=== PATIENT | male | born 1935 | race Caucasian/White ===

== ENCOUNTER 2018-10-14 11:58 | Observation (INO) | payer MEDICARE, SELFPAY ==
[2018-09-29 10:53] VITALS: BMI 24.3
[2018-10-13] VITALS (16 sets, daily range): BP systolic 105–152; BP diastolic 58–95; PULSE 72–89; RESP 6–21; TEMP 36.1–37; O2SAT 92–100; BMI 24.3
[2018-10-13] MEDS: ACETAMINOPHEN 325 MG TABLET 975 MG PO ×2 (08:40→21:21)
[2018-10-13] MEDS: LACTATED RINGERS 1,000 ML 42 ML IV ×2 (08:58→12:11)
--- NOTE | 2018-10-13 10:00 | DI.RAD.S_ITS ---
PROCEDURE: XR KNEE LT 1TO2V INDICATIONS: post operative left knee TECHNIQUE: 2 view(s) of the knee acquired. COMPARISON: None. FINDINGS: Bones: Patient is status post knee joint arthroplasty. Hardware components are in expected positions. Visualized bony structures are intact. Soft tissues: Overlying postoperative changes are noted. IMPRESSION: Normal alignment after left total knee arthroplasty. Dictated by: Scottie Do M.D. on 10/13/2018 at 13:55 Approved by: Scottie Do M.D. on 10/13/2018 at 13:55
--- NOTE | 2018-10-13 10:22 | PM.PREOP ---
Pre-operative Note Interval Note History & Physical reviewed/Exam performed by Physician: Yes Changes to H&P: No
--- NOTE | 2018-10-13 10:42 | P.OP_ITS ---
Operative Date/Time/Diagnoses Date of procedure: 10/13/18 Time of procedure: 12:30 Pre-op diagnosis: Left knee osteoarthritis Post-op diagnosis: same Procedure & Clinicians Procedure: Left total knee replacement Same procedure as scheduled: Yes Indications: The patient has had progressively worsening left knee pain with radiographic changes consistent with arthritis. Non-operative management has failed and the patient has requested total knee replacement. The risks, benefits and alternatives to surgery were discussed with the patient prior to proceeding. Risks discussed included, but were not limited to, failure to relieve pain, stiffness, infection, nerve damage, deep venous thrombosis, pulmonary embolism, stroke, coma, heart attack, permanent paralysis and , as well as the potential need for eventual revision of the prosthetic. Surgeon: Del Clemente Elevator Mechanic: Mirela Felix Click Yes if Unassisted: No Anesthesia Type: General and Local Operative Notes Findings: Severe tricompartmental osteoarthritis worst on the medial side. There was significant crystal formation in the synovial tissue either from CPPD or from repetitive corticosteroid injections. Closure Type: primary Specimen(s): none sent Prosthetic devices, grafts, tissues, transplants, or devices: Implants used in this procedure were manufactured by the [employer] and [employer] and included the BCS II Journey total knee replacement with a size 6 cobalt chromium femur, a size 6 non porous tibial base plate, a 9 mm cross-linked polyethylene tibial insert and a 38 mm oval Iza II patellar component. Applied: implant(s) Estimated Blood Loss (mL): 50 Blood products transfused: none Tourniquet time (min): 54 Procedure in detail: The patient was seen in the pre-operative area, where the left knee was identified as the operative site and this was marked with my initials. The patient received pre-operative antibiotics, and was taken to the operating room and placed on the operative table in the supine position. After satisfactory anesthesia, a timekeeper out? was performed. The left leg was encircled with a tourniquet about the proximal thigh, and the leg was prepared from the toes to the tourniquet with ChloroPrep in the usual fashion and draped through sterile drapes. The leg was elevated and exsanguinated with Eschmark bandage and the tourniquet inflated to 250 mmHg pressure. The knee was approached through an approximately 18 cm incision centered over the patella and carried into the knee through a medial parapatellar arthrotomy. The anterior osteophytes and soft tissues were removed. The rotational landmarks of Branch's line and the transepicondylar axis were marked on the femur with electrocautery, and intramedullary guide holes for the femur and tibia were created. The distal femoral cut was made in 6 degrees of valgus using the intramedullary guide at the +2 cut setting due to the patient's flexion contra cture. The proximal tibial cut was then made using the intramedullary guide, taking 9 mm of bone off the less involved side. The extension gap was checked and the rotation of the femoral component confirmed with the gap balancing blocks. The anterior, posterior and chamfer cuts were then made. The posterior osteophytes and soft tissues were then removed. The posterior capsule was injected with part of a mixture of 60 ml 0.25% Marcaine mixed with 20 ml Exparel and 4 mg of morphine for post-operative pain control. The remainder of this mixture was injected into the capsule and subcutaneous tissues during cement curing. The tibia was prepared with the rotation set by an extra medullary guide. Trial tibial and femoral components were then placed and the intercondylar notch cut through the femoral trial. Range of motion was 0-140 degrees, with good stability throughout the range. The patella was then cut to accommodate the patellar prosthetic. There was no need for a lateral release. The trials were then removed, and the femoral hole plugged with a bone plug. The bone was prepared with pulsatile lavage, and dried with a sponge. Cement was applied and the final prosthetics placed. Excess cement was removed during and after cement curing. After confirming there was no extruded cement posteriorly, the final tibial insert was placed. The knee was copiously irrigated and the tourniquet deflated. Hemostasis was obtained. The capsule was closed with interrupted # 2 polyester sutures. The subcutaneous layer was closed with 3-0 Vicryl, and the skin with a running 3-0 V-Lock suture and SteriStrips. An Aquacel Ag dressing was applied and the patient was taken to recovery having tolerated the procedure well. Complications: none Condition: stable Disposition: PACU Plan for aftercare: The patient will be maintained on a standard total knee replacement protocol with weight bearing as tolerated. The patient will receive aspirin and sequential compression devices for DVT prophylaxis. The patient will be discharged home when safe for the home environment.
[2018-10-13] MEDS: CEFAZOLIN 2 GM/100 ML FROZ.PIGGY IV ×2 (11:07→20:10)
[2018-10-13] MEDS: TRANEXAMIC ACID 1,000 MG VIAL 1000 MG INJ ×2 (11:24→12:24)
--- NOTE | 2018-10-13 11:35 | SUR.OPER ---
Supine on padded OR bed. Pillow under head, arms secured on padded armboards <90 degree abduction. Safety belt across torso. Non-operative leg secured with tape over blanket over lower leg. Operative leg secured in DeMayo/Stuart positioner.
[2018-10-13] MEDS: BUPIVACAINE 0.25% W/ EPI VIAL 60 ML INJ (11:48)
[2018-10-13] MEDS: BUPIVACAINE LIPOSOME 266 MG/20 ML VIAL INJ (11:48)
[2018-10-13] MEDS: MORPHINE 4 MG/ML INJ INJ (11:49)
[2018-10-13] MEDS: HYDROMORPHONE 2 MG INJ 0.5 MG IV (13:53)
--- NOTE | 2018-10-13 13:59 | SUR.PHASEI ---
Report called to PHILIP Campos
--- NOTE | 2018-10-13 14:24 | SUR.PHASEI ---
Pt transferred to the floor. O2 sat 87%-90%ra, 2lnc applied. Otherwise vs stable. LT knee drsg CDI. IV saline locked. Pt oriented to situation but intermittently has incorrect responses to questions. Belongings bag x2 with patient.
--- NOTE | 2018-10-13 16:07 | PC.NURSE ---
Post-op: Late entry Arrived to room 208 at 1415. Drowsy but awakens easily to voice/touch. Was placed on 2L O2 (RA sats in the upper 80's), cont pulse ox in place. Russell wrap and dressing to L knee C/D/I. CMS+ WNL, feet warm and pink with strong pedal pulses. Rated pain in L knee 4/10. Ice pack in place. Vitals stable. Taking ice chips and water without N/V. IV fluids per order. No urge to void at this time. SCD's placed. Oriented to room and call light, encouraged to make needs known. Light in reach, bed alarm on.
[2018-10-13] MEDS: OXYCODONE IR 5 MG TABLET PO ×2 (17:06→21:38)
--- NOTE | 2018-10-13 17:28 | PT.IIE ---
Current Diagnoses Unilateral primary osteoarthritis, left knee (10/13/18) Surgery Performed Operation Date: 10/13/18 10:00 Actual Procedures p Total Knee Arthroplasty(Left) - Del Clemente MD Surgical History (Last Updated 09/29/18 @ 11:16 by Lavonne Burgos, RN) History of arthroplasty of right knee (Acute ~2018) Hx of appendectomy (Acute) Status post carotid surgery (Acute ~2013) Medical History (Last Updated 09/29/18 @ 12:26 by Lavonne Burgos RN) Bladder diverticulum (Acute) Detached retina, left (Acute) Elevated cholesterol (Acute) Enlarged prostate (Acute) HTN (hypertension) (Acute) Hematuria (Acute) Tremor (Acute) Physical Therapy Inpatient Evaluation/Re-Eval M1 PT/OT-IP Prior Functional Status Start: 10/13/18 16:54 Freq: NEEDED Status: Active Protocol: Document 10/13/18 16:30 HH (Rec: 10/13/18 17:28 [id number]) Medical Review Prior Functional Status Medical History Reviewed Yes Diet/Fluid Consistency Regular Communication No communication deficits noted except slow speech Mobility and Gait Pt was an independent ambulator at home and community without using AD. Activities of Daily Living and IADL's Pt was independent for ADLs and IADLs without using AD. Social History Household Members none Living Arrangements House Number of Floors (Floors) One Floor Number of Stairs To Enter/Railing? 2, no railing Home Environment Tub/Shower Home Equipment Front Wheel Walker Straight Cane Grab Bars In Shower Employment Status Retired Additional Social History Comment Pt lives a lone in a 1 story home with 2 SARA in [facility]. Pt states he does not need any assistive device for mobility and able to step over the bathtub. Pt does need to hold on counter for support from time to time for sit to stand. Pt states he has difficulty getting up from low chair. M2 PT-IP Current Condition Start: 10/13/18 16:54 Freq: NEEDED Status: Active Protocol: Document 10/13/18 16:30 HH (Rec: 10/13/18 17:28 [id number]) Physical Therapy Current Condition Current Condition Evaluation Date 10/13/18 Treatment Diagnosis L TKA, difficulty in walking Onset Date 10/13/18 Weight Bearing Status Weight Bearing Status Weight Bear as Tolerated M3 PT-IP Subjective Start: 10/13/18 16:54 Freq: NEEDED Status: Active Protocol: Document 10/13/18 16:30 HH (Rec: 10/13/18 17:28 HH [id number]) Subjective Physical Therapy Visit Type Type Initial Evaluation Visit Start Time 16:30 Visit Stop Time 17:00 Total Visit Minutes 30 Notes Pt agreeable to mobilize with PT Number of ULTRASONIC CLEANER Visits 0 Physical Therapy Visit Comments Patient Comments I want to try walking. Patient Goals To return home Therapy Pain Assessment Pain Present Pain Present Denied Pain M4 PT-IP Mobility and Gait Start: 10/13/18 16:54 Freq: NEEDED Status: Active Protocol: Document 10/13/18 16:30 HH (Rec: 10/13/18 17:28 HH [id number]) PT-Bed Mobility Assessment Supine to Sit Supine to Sit Standby Assistance Head of Bed Elevated Bedrails Scooting Scooting to Edge of Bed Standby Assistance PT-Transfer Assessment Sit to and From Stand Sit to and from Stand Standby Assistance 1 Person Assistance Use of Upper Extremities Equipment Transfer Assistive Device Bed Rail Gait Belt Front Wheeled Walker Transfers Transfer Destination Bed Chair Transfer Technique Stand Step Pivot Transfer Ability Level of Assist Standby Assistance Comments Mobility Comments Pt states Im very cautious and i know my capability. So you could help me if i asked for it. Pt got up EOB from supine followed by STS with SBA x 1 and FWW. Pt presented lack of L TKE upon standing but he was able to flex his knee close to 95 degrees. Pt required cues to facilitate upright posture along with L knee extension. Gait Assessment Gait Gait Assistance Required: Contact Guard Assist Distance (Feet) 15 Able to Maintain Weight Bearing Status Yes During Gait Assistive Devices Assistive Device Gait Belt Front Wheeled Walker Gait Deviations General Gait Pattern Antalgic Decreased Stride Length Decreased Feet Clearance Step-to Gait Factors Limiting Gait Function Factors Limiting Gait Function Decreased Activity Tolerance Decreased Strength Limited Range of Motion Pain Poor Balance Poor Safety Awareness Comments Gait Comments Pt was impulsive during session who needed cues for guidance. Pt amb from EOB on the right side and amb around his bed and returned to bedside chair with CGA 1pa. Pt presented step to gait pattern with decreased stride length and feet clearance. Pt also demonstrated lack of L TKE and heel strike. Pt required cues for upright posture and TKE. Pt also needed cues to position his FWW close to his body upon turns and stand to sit. Pt requested to placed 2 pillows on his chair for better sit to stand. Call light within reach. Pt was found attempting to stand up by himself when PT was updating pt's status with RN in the hallway. Requested nursing staff to place chair alarm due to his impulsiveness . Stair Climbing Assessment Comments Stair Climbing Comments unable PT-Balance Assessment Sitting Balance and Reactions Static Sitting Balance Ability Normal Dynamic Sitting Balance Ability Normal Standing Balance and Reactions Static Standing Balance Ability Good Dynamic Standing Balance Ability Fair M5 PT-IP Objective Assessments Start: 10/13/18 16:54 Freq: NEEDED Status: Active Protocol: Document 10/13/18 16:30 HH (Rec: 10/13/18 17:28 [id number]) Orientation Orientation/Cognition Level of Alertness Alert Orientation Name Age Birthday Month Date Year Day of Week Place Situation Language Function Ability No Deficits Noted Safety Awareness Decreased Safety Awareness Memory Description No Deficits Noted Gross Range of Motion Upper Extremity ROM Assessment Within Functional Limits Lower Extremity ROM Assessment Left Impaired Impairments 10- 95 AROM knee ext to knee flex Strength Upper Extremity Strength Assessment Within Functional Limits Lower Extremity Strength Assessment Left Impaired Coordination Assessment Gross Coordination Gross Coordination WNL Sensation Assessment Sensation Gross Sensation Left LE Impaired Light Touch Impaired Proprioception (Position) Impaired M6 PT-IP Treatment Start: 10/13/18 16:54 Freq: NEEDED Status: Active Protocol: Document 10/13/18 16:30 HH (Rec: 10/13/18 17:28 [id number]) Physical Therapy Treatment Exercises Exercises Ankle Pumps Quad Sets Heel Slides Straight Leg Raises Short Arc Quads Education Education Provided Precautions Weight Bearing Status Post-Op Packet Safety M7 PT-IP Assessment and Plan Start: 10/13/18 16:54 Freq: NEEDED Status: Active Protocol: Document 10/13/18 16:30 HH (Rec: 10/13/18 17:28 [id number]) PT Summary Assessment and Plan Potential Rehabilitation Potential Good Status of Condition at Evaluation Evolving Summary Impairments Pain ROM Strength Balance Sensation Bed Mobility Transfers Gait Activity Tolerance Assessment Summary Pt is a 83 yo male post op day 1 L TKA due to severe L knee OA. Pt presented slightly impulsive and required cues for guidance upon assessment. Pt demonstrated step to gait and lack of L TKE. Education on post op precautions, therex , and safety awareness are provided. Pt also did have a high PLOF without using AD. However, Pt will have to clear steps prior to d/c home. Recommend d/c home with outpatient PT to cont improve his functional strength and mobility once pt is medically stable. Goals Bed Mobility Goal Independent Transfer Goal Independent Gait Goal Independent Gait Distance 150 Other Goals stair climb 2 steps without support Days to Meet Goals 5 Frequency of Treatment Frequency Of Treatment Twice a Day Treatment Plan Physical Therapy Treatment Plan Bed Mobility Training Transfer Training Gait Training Therapeutic Exercise Balance Retraining Post Op Education Discharge Planning Hot or Cold Pack Other Recommendations and Next Treatment L TKE Focus transfer and gait training as ese stair training as ese Recommendations To Nursing Amount of Assist Needed 1 Person Assist Discharge Recommendations PT Discharge Recommendations Home Outpatient PT Equipment Needed for Home Before shower bench, raised toilet Discharge seat, grab bar in toilet
[2018-10-13] MEDS: ASPIRIN EC 81 MG TABLET PO (21:26)
[2018-10-13] MEDS: LATANOPROST 0.005% OPHTH 2.5 ML 1 DROPS EYE-BOTH (21:27)
[2018-10-13] MEDS: DOCUSATE 100 MG CAPSULE PO (21:27)
[2018-10-13] MEDS: LISINOPRIL 20 MG TABLET PO (21:28)
--- NOTE | 2018-10-13 22:35 | PC.NURSE ---
Pt stable post op course. Pt may have a tendency to be 'pleasantly implusive' at times. Lungs clear, SpO2 97% RA IVF infusing as per orders w/o incidence. Aquacell and gauri wrap dsg CDI. Med twice for discomfort w/oxycodone. Call light w/in reach , bed alarm on for pt safety. Continue w/plan of care.
[2018-10-14] VITALS (8 sets, daily range): BP systolic 106–151; BP diastolic 58–94; PULSE 81–91; RESP 13–21; TEMP 36.6–37.1; O2SAT 91–96
[2018-10-14] MEDS: ONDANSETRON 4 MG ODT PO (00:34)
[2018-10-14] MEDS: LACTATED RINGERS 1,000 ML 125 ML IV (00:35)
[2018-10-14] MEDS: CEFAZOLIN 2 GM/100 ML FROZ.PIGGY IV (03:55)
[2018-10-14 07:02] LABS: Hematocrit 39.4 % (41-53); Hemoglobin 12.4 g/dL (13.5-17.5)
--- NOTE | 2018-10-14 07:38 | PM.PNPO.1 ---
Subjective Date Patient Seen: 10/14/18 Time Patient Seen: 07:38 Interval history: The patient reports reasonable pain control. Physical therapy reports he is impulsive and needs additional instruction prior to discharge. Exam Vital Signs (past 8 hours): - 10/14/18 01:00 10/14/18 06:19 Temperature 97.8 F 97.9 F Pulse Rate 83 91 H Respiratory Rate 18 18 Blood Pressure 136/94 H 151/86 H Pulse Oximetry 92 92 Oxygen Delivery Method Room Air Oxygen Flow Rate 2 Narrative Exam Narrative: Left knee wound is dressed with no drainage on the bandage. Calf is soft. Light touch and motion are intact in the left lower extremity. Objective Labs Result Diagrams: 10/14/18 06:23 Labs: Laboratory Results - last 24 hr 10/14/18 06:23 Hgb 12.4 L Hct 39.4 L Assessment & Plan Post-op Postoperative Procedures Operation Date: 10/13/18 10:00 Actual Procedures Side Surgeon p Total Knee Arthroplasty Left Del Clemente MD Postoperative day: 1 Postoperative status: doing well and anemia Postoperative status narrative: The patient is stable postoperative day 1 after left total knee replacement. He has a mild, anticipated post hemorrhagic anemia. He does have complaints of heartburn today and will be receiving Tums at his request. Postoperative plan: routine post-op care and ambulate Postoperative plan narrative: We will give him his Tums as requested. He will work with physical therapy today. The patient lives alone and they are currently 8-10 of snow at his house. It is not appropriate for him to be discharged as of yet. It is possible he may be able to go home tomorrow. Time Spent With Patient less than 15 minutes Quality VTE Deep Vein Thrombosis/Pulmonary Embolism Present on Admission: No
[2018-10-14] MEDS: OXYCODONE IR 5 MG TABLET PO ×3 (09:28→19:00)
[2018-10-14] MEDS: DOCUSATE 100 MG CAPSULE PO ×2 (09:29→21:20)
[2018-10-14] MEDS: ASPIRIN EC 81 MG TABLET PO ×2 (09:29→21:20)
[2018-10-14] MEDS: ACETAMINOPHEN 325 MG TABLET 975 MG PO ×3 (09:29→21:21)
--- NOTE | 2018-10-14 11:30 | CM.DANOTE ---
DCP: Case received, EMR reviewed. Information obtained by physical therapist. DCP template completed with information currently available. Patient is an 83 year old male who admitted yesterday morning to the care of the surgical team. Payer: confirmed: Medicare/[employer]. Patient came to hospital for surgical procedure. Patient had L.Total Knee Replacement. He has history of left knee osteoarthritis. Was going to check in with patient, but was sleeping. Physical therapy had just finished working with him, and Danyell was able to update this caseworker intake on his baseline and how he was doing. Patient lives alone in [place], but is independent, and has been driving. Unknown if patient has primary provider at this time. P.t. stated that home is doable for patient. May be pursuing outpatient physical therapy. She stated that he was anxious to go home. P: DCP to follow closely. Patient should be able to return home when he is medically cleared by orthopedist and cleared by physical therapy team. Kristina Barba RN/Assistant Kitchen Manager
--- NOTE | 2018-10-14 11:55 | PT.IPTN ---
Current Diagnoses Unilateral primary osteoarthritis, left knee (10/13/18) Surgery Performed Operation Date: 10/13/18 10:00 Actual Procedures p Total Knee Arthroplasty(Left) - Del Clemente MD Physical Therapy Treatment Note M2 PT-IP Current Condition Start: 10/13/18 16:54 Freq: NEEDED Status: Active Protocol: Document 10/13/18 16:30 HH (Rec: 10/13/18 17:28 HH [id number]) Physical Therapy Current Condition Current Condition Evaluation Date 10/13/18 Treatment Diagnosis L TKA, difficulty in walking Onset Date 10/13/18 Weight Bearing Status Weight Bearing Status Weight Bear as Tolerated M3 PT-IP Subjective Start: 10/13/18 16:54 Freq: NEEDED Status: Active Protocol: Document 10/14/18 10:55 GGD (Rec: 10/14/18 12:36 GGD [email or web address]) Subjective Physical Therapy Visit Type Type Treatment Note Visit Start Time 10:15 Visit Stop Time 10:55 Total Visit Minutes 40 Number of DIRECTOR LEARNING AND DEVELOPMENT Visits 1 Physical Therapy Visit Comments Patient Comments Pt wants to get up. Therapy Pain Assessment Pain When Pain Assessed At Rest Pain Present Pain Present Pain Reported Location Left Knee Intensity 4 Scale Used Numeric (1 - 10) M4 PT-IP Mobility and Gait Start: 10/13/18 16:54 Freq: NEEDED Status: Active Protocol: Document 10/14/18 10:55 GGD (Rec: 10/14/18 12:36 GGD [id number]) PT-Bed Mobility Assessment Supine to Sit Supine to Sit Standby Assistance Sit to Supine Sit to Supine Standby Assistance Scooting Scooting to Edge of Bed Standby Assistance PT-Transfer Assessment Sit to and From Stand Sit to and from Stand Contact Guard Assistance 1 Person Assistance Use of Upper Extremities Equipment Transfer Assistive Device Gait Belt Front Wheeled Walker Transfers Transfer Destination Bed Toilet Transfer Ability Level of Assist Standby Assistance Gait Assessment Gait Gait Assistance Required: Contact Guard Assist Distance (Feet) 40 Able to Maintain Weight Bearing Status Yes During Gait Assistive Devices Assistive Device Gait Belt Front Wheeled Walker Gait Deviations General Gait Pattern Antalgic Decreased Stride Length Decreased Feet Clearance Step-to Gait Factors Limiting Gait Function Factors Limiting Gait Function Decreased Activity Tolerance Decreased Strength Limited Range of Motion Pain Poor Balance Poor Safety Awareness Comments Gait Comments Pt need mod cues for gait pattern, FWW management and safety. M5 PT-IP Objective Assessments Start: 10/13/18 16:54 Freq: NEEDED Status: Active Protocol: Document 10/13/18 16:30 HH (Rec: 10/13/18 17:28 HH [id number]) Orientation Orientation/Cognition Level of Alertness Alert Orientation Name Age Birthday Month Date Year Day of Week Place Situation Language Function Ability No Deficits Noted Safety Awareness Decreased Safety Awareness Memory Description No Deficits Noted Gross Range of Motion Upper Extremity ROM Assessment Within Functional Limits Lower Extremity ROM Assessment Left Impaired Impairments 10- 95 AROM knee ext to knee flex Strength Upper Extremity Strength Assessment Within Functional Limits Lower Extremity Strength Assessment Left Impaired Coordination Assessment Gross Coordination Gross Coordination WNL Sensation Assessment Sensation Gross Sensation Left LE Impaired Light Touch Impaired Proprioception (Position) Impaired M6 PT-IP Treatment Start: 10/13/18 16:54 Freq: NEEDED Status: Active Protocol: Document 10/14/18 10:55 GGD (Rec: 10/14/18 12:36 GGD [id number]) Physical Therapy Treatment Exercises Exercises Ankle Pumps Quad Sets Heel Slides Seated Knee Flexion/Extension M7 PT-IP Assessment and Plan Start: 10/13/18 16:54 Freq: NEEDED Status: Active Protocol: Document 10/14/18 10:55 GGD (Rec: 10/14/18 12:36 GGD [email or web address]) PT Summary Assessment and Plan Summary Assessment Summary Pt improving with mobility. He was SBA to CGA for mobility. He need cues for safety with gait and transfers. He was impulsive with mobility. Frequency of Treatment Frequency Of Treatment Twice a Day Treatment Plan Other Recommendations and Next Treatment L TKE Focus transfer and gait training as ese stair training as ese Recommendations To Nursing Amount of Assist Needed 1 Person Assist Discharge Recommendations PT Discharge Recommendations Home Outpatient PT
--- NOTE | 2018-10-14 15:10 | PT.IPTN ---
Current Diagnoses Unilateral primary osteoarthritis, left knee (10/13/18) Surgery Performed Operation Date: 10/13/18 10:00 Actual Procedures p Total Knee Arthroplasty(Left) - Del Clemente MD Physical Therapy Treatment Note M2 PT-IP Current Condition Start: 10/13/18 16:54 Freq: NEEDED Status: Active Protocol: Document 10/13/18 16:30 HH (Rec: 10/13/18 17:28 HH [id number]) Physical Therapy Current Condition Current Condition Evaluation Date 10/13/18 Treatment Diagnosis L TKA, difficulty in walking Onset Date 10/13/18 Weight Bearing Status Weight Bearing Status Weight Bear as Tolerated M3 PT-IP Subjective Start: 10/13/18 16:54 Freq: NEEDED Status: Active Protocol: Document 10/14/18 15:10 AB (Rec: 10/14/18 16:32 AB [id number]) Subjective Physical Therapy Visit Type Type Treatment Note Visit Start Time 15:10 Visit Stop Time 15:25 Total Visit Minutes 15 Number of LOGGING RAFTER LABORER Visits 0 Physical Therapy Visit Comments Patient Comments pt agreeable to do PT Therapy Pain Assessment Pain When Pain Assessed At Rest Pain Present Pain Present Pain Reported Location Left Knee Intensity 6 Scale Used Numeric (1 - 10) Pain Management Techniques Re-positioning Timing of Activity with Medications M4 PT-IP Mobility and Gait Start: 10/13/18 16:54 Freq: NEEDED Status: Active Protocol: Document 10/14/18 15:10 AB (Rec: 10/14/18 16:32 AB [id number]) PT-Bed Mobility Assessment Supine to Sit Supine to Sit Standby Assistance Head of Bed Elevated Sit to Supine Sit to Supine Standby Assistance Head of Bed Elevated Scooting Scooting to Edge of Bed Standby Assistance PT-Transfer Assessment Sit to and From Stand Sit to and from Stand Standby Assistance Contact Guard Assistance Use of Upper Extremities Equipment Transfer Assistive Device Gait Belt Front Wheeled Walker Orthotic/Prosthetic Devices or Brace: No Gait Assessment Gait Gait Assistance Required: Standby Assistance Contact Guard Assist Distance (Feet) 125 Able to Maintain Weight Bearing Status Yes During Gait Assistive Devices Assistive Device Gait Belt Front Wheeled Walker Orthotic/Prosthetic Devices or Brace: No Gait Deviations General Gait Pattern Antalgic Decreased Stride Length Decreased Feet Clearance Factors Limiting Gait Function Factors Limiting Gait Function Decreased Activity Tolerance Decreased Strength Difficulty Following Directions Limited Range of Motion Pain Poor Balance Poor Safety Awareness Comments Gait Comments pt ambulated in hallway ~ 125 ft using FWW. pt presents with increase L knee flexion during ambulation. pt is impulsive and directs his own care; has bouts of agitation during tx session. PT providing CGA to pt for safety especially with turns and pt got agitated and screamed at PT; that he will ask for assistance if he needs it. pt ambulated back to room using FWW. completed SAQs. pt wanting PT to leave FWW next to him so that he can get up by himself if he needs to use the toilet. educated pt on safety and risk of falls and pt stated I haven't fallen yet, have I? pt with decrease safety awareness. informed pt to ask for assistance if needed and whoever will assisit him will put the FWW close to him if needed. M5 PT-IP Objective Assessments Start: 10/13/18 16:54 Freq: NEEDED Status: Active Protocol: Document 10/13/18 16:30 HH (Rec: 10/13/18 17:28 HH [id number]) Orientation Orientation/Cognition Level of Alertness Alert Orientation Name Age Birthday Month Date Year Day of Week Place Situation Language Function Ability No Deficits Noted Safety Awareness Decreased Safety Awareness Memory Description No Deficits Noted Gross Range of Motion Upper Extremity ROM Assessment Within Functional Limits Lower Extremity ROM Assessment Left Impaired Impairments 10- 95 AROM knee ext to knee flex Strength Upper Extremity Strength Assessment Within Functional Limits Lower Extremity Strength Assessment Left Impaired Coordination Assessment Gross Coordination Gross Coordination WNL Sensation Assessment Sensation Gross Sensation Left LE Impaired Light Touch Impaired Proprioception (Position) Impaired M6 PT-IP Treatment Start: 10/13/18 16:54 Freq: NEEDED Status: Active Protocol: Document 10/14/18 15:10 AB (Rec: 10/14/18 16:32 AB [id number]) Physical Therapy Treatment Exercises Exercises Seated Knee Flexion/Extension Education Education Provided Precautions Weight Bearing Status Safety M7 PT-IP Assessment and Plan Start: 10/13/18 16:54 Freq: NEEDED Status: Active Protocol: Document 10/14/18 15:10 AB (Rec: 10/14/18 16:32 AB [id number]) PT Summary Assessment and Plan Potential Rehabilitation Potential Fair Summary Impairments Pain ROM Strength Balance Cognition Bed Mobility Transfers Gait Activity Tolerance Assessment Summary pt requiring SBA to CGA with mobility but has decrease safety awareness affecting independence. pt has 2 steps to enter the house and stair climbing training will be conducted prior to d/c and if able to safely complete, may go home when medically stable. Goals Bed Mobility Goal Independent Transfer Goal Independent Gait Goal Independent Gait Distance 150 Other Goals stair climb 2 steps without support Days to Meet Goals 5 Frequency of Treatment Frequency Of Treatment Twice a Day Treatment Plan Physical Therapy Treatment Plan Bed Mobility Training Transfer Training Gait Training Therapeutic Exercise Balance Retraining Post Op Education Discharge Planning Hot or Cold Pack Other Recommendations and Next Treatment ambulation, stair climbing Focus training Recommendations To Nursing Amount of Assist Needed 1 Person Assist Discharge Recommendations PT Discharge Recommendations Home Outpatient PT
[2018-10-14] MEDS: IBUPROFEN 600 MG TABLET PO (19:05)
[2018-10-14] MEDS: LATANOPROST 0.005% OPHTH 2.5 ML 1 DROPS EYE-BOTH (21:20)
[2018-10-14] MEDS: LISINOPRIL 20 MG TABLET PO (21:20)
[2018-10-14] MEDS: SODIUM CHLORIDE 0.9% FLUSH 10 ML IV (21:30)
[2018-10-15] VITALS (7 sets, daily range): BP systolic 99–130; BP diastolic 59–85; PULSE 70–78; RESP 16–18; TEMP 36.2–36.8; O2SAT 92–97
--- NOTE | 2018-10-15 02:24 | PC.NURSE ---
A/O x3, 95-96%RA, LS clear, denies SOB. Left knee aquacell/gauri CDI, elevated on pillow, CMS+, 1PA FWW, uses urinal indep. Pain 1850 5/10, oxycodone 5mg and Ibu 600mg PO, effective. BT+, flatus+ denies nausea. LAC SL. Bed alarm on for safety.
--- NOTE | 2018-10-15 07:09 | PM.PNPO.1 ---
Subjective Date Patient Seen: 10/15/18 Time Patient Seen: 07:09 Interval history: The patient reports he is doing well with pain control. He is frustrated with physical therapy as he feels they are limiting him. Physical therapy notes he is impulsive and makes poor decisions regarding safety. Exam Vital Signs (past 8 hours): - 10/15/18 00:00 10/15/18 04:00 Temperature 97.7 F 98.1 F Pulse Rate 78 74 Respiratory Rate 18 18 Blood Pressure 130/77 123/85 Pulse Oximetry 96 97 Oxygen Delivery Method Room Air Oxygen Flow Rate 0 Narrative Exam Narrative: Left knee wound is dressed with no drainage on the bandage. Calf is soft. Light touch and motion are intact in the left lower extremity. Objective Labs Result Diagrams: 10/14/18 06:23 Labs: Laboratory Results - last 24 hr 10/14/18 06:23 Hgb 12.4 L Hct 39.4 L Assessment & Plan Post-op Postoperative Procedures Operation Date: 10/13/18 10:00 Actual Procedures Side Surgeon p Total Knee Arthroplasty Left Del Clemente MD Postoperative day: 2 Postoperative status: doing well and anemia Postoperative status narrative: The patient is making progress with therapy however at times he is impulsive and is his own worst enemy. He lives alone and will need to be fairly independent prior to discharge. I do not feel he has attained a safe level for discharge home. Postoperative plan: routine post-op care and ambulate Postoperative plan narrative: Continued physical therapy today. It is likely will make enough progress to be discharged tomorrow. Time Spent With Patient less than 15 minutes Quality VTE Deep Vein Thrombosis/Pulmonary Embolism Present on Admission: No
[2018-10-15] MEDS: IBUPROFEN 600 MG TABLET PO ×3 (08:00→20:36)
[2018-10-15] MEDS: ASPIRIN EC 81 MG TABLET PO ×2 (08:00→20:33)
[2018-10-15] MEDS: OXYCODONE IR 5 MG TABLET PO ×3 (08:00→20:39)
[2018-10-15] MEDS: DOCUSATE 100 MG CAPSULE PO ×2 (08:00→20:33)
--- NOTE | 2018-10-15 10:35 | PT.IPTN ---
Current Diagnoses Unilateral primary osteoarthritis, left knee (10/13/18) Surgery Performed Operation Date: 10/13/18 10:00 Actual Procedures p Total Knee Arthroplasty(Left) - Del Clemente MD Physical Therapy Treatment Note M2 PT-IP Current Condition Start: 10/13/18 16:54 Freq: NEEDED Status: Active Protocol: Document 10/13/18 16:30 HH (Rec: 10/13/18 17:28 HH [id number]) Physical Therapy Current Condition Current Condition Evaluation Date 10/13/18 Treatment Diagnosis L TKA, difficulty in walking Onset Date 10/13/18 Weight Bearing Status Weight Bearing Status Weight Bear as Tolerated M3 PT-IP Subjective Start: 10/13/18 16:54 Freq: NEEDED Status: Active Protocol: Document 10/15/18 10:35 GGD (Rec: 10/15/18 12:51 GGD [id number]) Subjective Physical Therapy Visit Type Type Treatment Note Visit Start Time 10:05 Visit Stop Time 10:35 Total Visit Minutes 30 Number of PATHOLOGY LABORATORY TECHNOLOGIST Visits 1 Physical Therapy Visit Comments Patient Comments Pt willing to work with PT. Therapy Pain Assessment Pain When Pain Assessed At Rest Pain Present Pain Present Denied Pain M4 PT-IP Mobility and Gait Start: 10/13/18 16:54 Freq: NEEDED Status: Active Protocol: Document 10/15/18 10:35 GGD (Rec: 10/15/18 12:51 GGD [id number]) PT-Bed Mobility Assessment Supine to Sit Supine to Sit Standby Assistance Sit to Supine Sit to Supine Standby Assistance Scooting Scooting to Edge of Bed Standby Assistance PT-Transfer Assessment Sit to and From Stand Sit to and from Stand Standby Assistance Use of Upper Extremities Equipment Transfer Assistive Device Gait Belt Front Wheeled Walker Orthotic/Prosthetic Devices or Brace: No Transfers Transfer Destination Bed Transfer Ability Level of Assist Standby Assistance Gait Assessment Gait Gait Assistance Required: Standby Assistance Contact Guard Assist Distance (Feet) 150 Able to Maintain Weight Bearing Status Yes During Gait Assistive Devices Assistive Device Gait Belt Front Wheeled Walker Orthotic/Prosthetic Devices or Brace: No Gait Deviations General Gait Pattern Antalgic Decreased Stride Length Decreased Feet Clearance Factors Limiting Gait Function Factors Limiting Gait Function Decreased Activity Tolerance Decreased Strength Difficulty Following Directions Limited Range of Motion Pain Poor Balance Poor Safety Awareness Comments Gait Comments Pt need cues for posture. Stair Climbing Assessment Evaluation Level of Assist On Stairs Contact Guard Assistance Devices Stair Climbing Assistive Devices Right Railing Technique/Endurance Stair Climbing Direction Ascend and Descend Stair Climbing Technique Step to Step Number of Steps Climbed 3 Query Text: Stair Climbing Set # Repetitions (reps) 1 M5 PT-IP Objective Assessments Start: 10/13/18 16:54 Freq: NEEDED Status: Active Protocol: Document 10/13/18 16:30 (Rec: 10/13/18 17:28 [id number]) Orientation Orientation/Cognition Level of Alertness Alert Orientation Name Age Birthday Month Date Year Day of Week Place Situation Language Function Ability No Deficits Noted Safety Awareness Decreased Safety Awareness Memory Description No Deficits Noted Gross Range of Motion Upper Extremity ROM Assessment Within Functional Limits Lower Extremity ROM Assessment Left Impaired Impairments 10- 95 AROM knee ext to knee flex Strength Upper Extremity Strength Assessment Within Functional Limits Lower Extremity Strength Assessment Left Impaired Coordination Assessment Gross Coordination Gross Coordination WNL Sensation Assessment Sensation Gross Sensation Left LE Impaired Light Touch Impaired Proprioception (Position) Impaired M6 PT-IP Treatment Start: 10/13/18 16:54 Freq: NEEDED Status: Active Protocol: Document 10/15/18 10:35 GGD (Rec: 10/15/18 12:51 GGD [id number]) Physical Therapy Treatment Exercises Exercises Ankle Pumps Quad Sets Heel Slides Seated Knee Flexion/Extension Education Education Provided Safety M7 PT-IP Assessment and Plan Start: 10/13/18 16:54 Freq: NEEDED Status: Active Protocol: Document 10/15/18 10:35 GGD (Rec: 10/15/18 12:51 GGD [id number]) PT Summary Assessment and Plan Summary Assessment Summary Pt improving with mobility. He needed less cues with gait and improved in safety. He was safe and stable with stair mobility. He will be safe for home D/C when medically stable . Frequency of Treatment Frequency Of Treatment Twice a Day Treatment Plan Physical Therapy Treatment Plan Bed Mobility Training Transfer Training Gait Training Therapeutic Exercise Balance Retraining Post Op Education Discharge Planning Hot or Cold Pack Other Recommendations and Next Treatment ambulation, stair climbing Focus training Recommendations To Nursing Amount of Assist Needed 1 Person Assist Discharge Recommendations PT Discharge Recommendations Home Outpatient PT
[2018-10-15] MEDS: ACETAMINOPHEN 325 MG TABLET 975 MG PO ×3 (10:45→20:33)
[2018-10-15] MEDS: SODIUM CHLORIDE 0.9% FLUSH 10 ML IV ×2 (12:44→20:34)
--- NOTE | 2018-10-15 14:15 | PT.IPTN ---
Current Diagnoses Unilateral primary osteoarthritis, left knee (10/13/18) Surgery Performed Operation Date: 10/13/18 10:00 Actual Procedures p Total Knee Arthroplasty(Left) - Del Clemente MD Physical Therapy Treatment Note M2 PT-IP Current Condition Start: 10/13/18 16:54 Freq: NEEDED Status: Active Protocol: Document 10/13/18 16:30 HH (Rec: 10/13/18 17:28 HH [id number]) Physical Therapy Current Condition Current Condition Evaluation Date 10/13/18 Treatment Diagnosis L TKA, difficulty in walking Onset Date 10/13/18 Weight Bearing Status Weight Bearing Status Weight Bear as Tolerated M3 PT-IP Subjective Start: 10/13/18 16:54 Freq: NEEDED Status: Active Protocol: Document 10/15/18 14:15 GGD (Rec: 10/15/18 14:56 GGD [email or web address]) Subjective Physical Therapy Visit Type Type Treatment Note Visit Start Time 13:45 Visit Stop Time 14:15 Total Visit Minutes 30 Number of COMPLEX MANAGER Visits 2 Physical Therapy Visit Comments Patient Comments Pt states he want's to use the bathroom. Therapy Pain Assessment Pain When Pain Assessed At Rest Pain Present Pain Present Denied Pain M4 PT-IP Mobility and Gait Start: 10/13/18 16:54 Freq: NEEDED Status: Active Protocol: Document 10/15/18 14:15 GGD (Rec: 10/15/18 14:56 GGD [id number]) PT-Bed Mobility Assessment Supine to Sit Supine to Sit Standby Assistance Sit to Supine Sit to Supine Standby Assistance Scooting Scooting to Edge of Bed Standby Assistance PT-Transfer Assessment Sit to and From Stand Sit to and from Stand Standby Assistance Use of Upper Extremities Equipment Transfer Assistive Device Gait Belt Front Wheeled Walker Orthotic/Prosthetic Devices or Brace: No Transfers Transfer Destination Bed Toilet Transfer Ability Level of Assist Standby Assistance Comments Mobility Comments Use of gait belt to assist left LE in and out of bed. Gait Assessment Gait Gait Assistance Required: Standby Assistance Contact Guard Assist Distance (Feet) 150 Able to Maintain Weight Bearing Status Yes During Gait Assistive Devices Assistive Device Gait Belt Front Wheeled Walker Orthotic/Prosthetic Devices or Brace: No Gait Deviations General Gait Pattern Antalgic Decreased Stride Length Decreased Feet Clearance Factors Limiting Gait Function Factors Limiting Gait Function Decreased Activity Tolerance Decreased Strength Difficulty Following Directions Limited Range of Motion Pain Poor Balance Poor Safety Awareness Comments Gait Comments Pt need cues for posture. Stair Climbing Assessment Evaluation Level of Assist On Stairs Contact Guard Assistance Devices Stair Climbing Assistive Devices Right Railing Technique/Endurance Stair Climbing Direction Ascend and Descend Stair Climbing Technique Step to Step Number of Steps Climbed 3 Query Text: Stair Climbing Set # Repetitions (reps) 1 Comments Stair Climbing Comments Min cues M5 PT-IP Objective Assessments Start: 10/13/18 16:54 Freq: NEEDED Status: Active Protocol: Document 10/13/18 16:30 HH (Rec: 10/13/18 17:28 [id number]) Orientation Orientation/Cognition Level of Alertness Alert Orientation Name Age Birthday Month Date Year Day of Week Place Situation Language Function Ability No Deficits Noted Safety Awareness Decreased Safety Awareness Memory Description No Deficits Noted Gross Range of Motion Upper Extremity ROM Assessment Within Functional Limits Lower Extremity ROM Assessment Left Impaired Impairments 10- 95 AROM knee ext to knee flex Strength Upper Extremity Strength Assessment Within Functional Limits Lower Extremity Strength Assessment Left Impaired Coordination Assessment Gross Coordination Gross Coordination WNL Sensation Assessment Sensation Gross Sensation Left LE Impaired Light Touch Impaired Proprioception (Position) Impaired M6 PT-IP Treatment Start: 10/13/18 16:54 Freq: NEEDED Status: Active Protocol: Document 10/15/18 14:15 GGD (Rec: 10/15/18 14:56 GGD [id number]) Physical Therapy Treatment Exercises Exercises Ankle Pumps Quad Sets Heel Slides Seated Knee Flexion/Extension M7 PT-IP Assessment and Plan Start: 10/13/18 16:54 Freq: NEEDED Status: Active Protocol: Document 10/15/18 14:15 GGD (Rec: 10/15/18 14:56 GGD [email or web address]) PT Summary Assessment and Plan Summary Assessment Summary Pt improving with mobility. He improved with static balance standing at sink. He did need min cues for gait pattern on stairs and for posture. He safe for home D/C when medically stable. Frequency of Treatment Frequency Of Treatment Twice a Day Treatment Plan Physical Therapy Treatment Plan Bed Mobility Training Transfer Training Gait Training Therapeutic Exercise Balance Retraining Post Op Education Discharge Planning Hot or Cold Pack Other Recommendations and Next Treatment ambulation, stair climbing Focus training Recommendations To Nursing Amount of Assist Needed 1 Person Assist Discharge Recommendations PT Discharge Recommendations Home Outpatient PT
--- NOTE | 2018-10-15 16:16 | PC.NURSE ---
Day Shift-Pt OOB with SBA throughout shift- Did state feeling light-headed this morning with ambulation, able to walk in halls with assist. BP 99/63 at 0900 & 103/59 at 1300. Spoke with Jaja Ocampo,PAC at 1420, pt will stay one more night. Plan for discharge tomorrow, pt stated his friend Jean Pierre Glass will be able to pick him up for discharge between [id number]. Pt given 2doses Oxycodone prn prior to working with PT & 2 doses ibuprofen with scheduled Tylenol for pain management plan. No BM post op yet, passing flatus, pt denies feeling constipated. High fall risk precautions in place, bed alarm on.
[2018-10-15] MEDS: LATANOPROST 0.005% OPHTH 2.5 ML 1 DROPS EYE-BOTH (20:34)
[2018-10-15] MEDS: LISINOPRIL 20 MG TABLET PO (20:34)
[2018-10-16 00:11] VITALS: BP 145/89; PULSE 76; RESP 16; TEMP 36.3; O2SAT 94
[2018-10-16 00:30] VITALS: BP 132/74; PULSE 69; O2SAT 98
--- NOTE | 2018-10-16 02:58 | PC.NURSE ---
ASSUMED CARE OF PT AT 2300. PT SLEEPING DURING HAND-0FF. AWAKENS TO VOICE. DENIES PAIN. CMS+. REFUSED SCD'S. VTE RISK ADVISED. USING I.S. AT BEDSIDE, ENC TO USE 10X/HR WHILE AWAKE. BED ALARM ON. CALL LIGHT WITHIN REACH.
[2018-10-16 04:13] VITALS: BP 139/78; PULSE 70; RESP 14; TEMP 36.6; O2SAT 93
[2018-10-16 08:05] VITALS: BP 150/79; PULSE 69; RESP 18; O2SAT 97
[2018-10-16] MEDS: DOCUSATE 100 MG CAPSULE PO (08:20)
[2018-10-16] MEDS: OXYCODONE IR 5 MG TABLET PO ×2 (08:20→13:05)
[2018-10-16] MEDS: ACETAMINOPHEN 325 MG TABLET 975 MG PO (08:21)
[2018-10-16] MEDS: ASPIRIN EC 81 MG TABLET PO (08:21)
--- NOTE | 2018-10-16 08:25 | CM.DPC ---
DCP: continued: met briefly with pt this morning; introduced self and role. Pt is expected to d/c to home today (Dr. Clemente will see him shortly). He confirms that his friend Jean Pierre will be picking him up today between 1:00 and 5:00. He has OUTPT PT all set up and has a friend who will be driving him to and from the appts. P: home today as per plan
[2018-10-16 08:30] VITALS: TEMP 36.7
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
--- NOTE | 2018-10-16 11:00 | PT.IPTN ---
Current Diagnoses Unilateral primary osteoarthritis, left knee (10/13/18) Surgery Performed Operation Date: 10/13/18 10:00 Actual Procedures p Total Knee Arthroplasty(Left) - Del Clemente MD Physical Therapy Treatment Note M2 PT-IP Current Condition Start: 10/13/18 16:54 Freq: NEEDED Status: Active Protocol: Document 10/13/18 16:30 HH (Rec: 10/13/18 17:28 HH [id number]) Physical Therapy Current Condition Current Condition Evaluation Date 10/13/18 Treatment Diagnosis L TKA, difficulty in walking Onset Date 10/13/18 Weight Bearing Status Weight Bearing Status Weight Bear as Tolerated M3 PT-IP Subjective Start: 10/13/18 16:54 Freq: NEEDED Status: Active Protocol: Document 10/16/18 11:30 GGD (Rec: 10/16/18 12:09 GGD [email or web address]) Subjective Physical Therapy Visit Type Type Treatment Note Visit Start Time 11:00 Visit Stop Time 11:30 Total Visit Minutes 30 Number of DIRECTOR ELECTRICAL ENGINEERING Visits 3 Physical Therapy Visit Comments Patient Comments Pt states he want's to use the bathroom. Therapy Pain Assessment Pain When Pain Assessed At Rest Pain Present Pain Present Denied Pain M4 PT-IP Mobility and Gait Start: 10/13/18 16:54 Freq: NEEDED Status: Active Protocol: Document 10/16/18 11:30 GGD (Rec: 10/16/18 12:09 GGD [email or web address]) PT-Bed Mobility Assessment Supine to Sit Supine to Sit Standby Assistance Sit to Supine Sit to Supine Standby Assistance Scooting Scooting to Edge of Bed Standby Assistance PT-Transfer Assessment Sit to and From Stand Sit to and from Stand Standby Assistance Use of Upper Extremities Equipment Transfer Assistive Device Gait Belt Front Wheeled Walker Orthotic/Prosthetic Devices or Brace: No Transfers Transfer Destination Bed Toilet Transfer Ability Level of Assist Standby Assistance Comments Mobility Comments Use of gait belt to assist left LE in and out of bed. Gait Assessment Gait Gait Assistance Required: Standby Assistance Contact Guard Assist Distance (Feet) 180 Able to Maintain Weight Bearing Status Yes During Gait Assistive Devices Assistive Device Gait Belt Front Wheeled Walker Orthotic/Prosthetic Devices or Brace: No Gait Deviations General Gait Pattern Antalgic Decreased Stride Length Decreased Feet Clearance Factors Limiting Gait Function Factors Limiting Gait Function Decreased Activity Tolerance Decreased Strength Difficulty Following Directions Limited Range of Motion Pain Poor Balance Poor Safety Awareness M5 PT-IP Objective Assessments Start: 10/13/18 16:54 Freq: NEEDED Status: Active Protocol: Document 10/13/18 16:30 HH (Rec: 10/13/18 17:28 HH [id number]) Orientation Orientation/Cognition Level of Alertness Alert Orientation Name Age Birthday Month Date Year Day of Week Place Situation Language Function Ability No Deficits Noted Safety Awareness Decreased Safety Awareness Memory Description No Deficits Noted Gross Range of Motion Upper Extremity ROM Assessment Within Functional Limits Lower Extremity ROM Assessment Left Impaired Impairments 10- 95 AROM knee ext to knee flex Strength Upper Extremity Strength Assessment Within Functional Limits Lower Extremity Strength Assessment Left Impaired Coordination Assessment Gross Coordination Gross Coordination WNL Sensation Assessment Sensation Gross Sensation Left LE Impaired Light Touch Impaired Proprioception (Position) Impaired M6 PT-IP Treatment Start: 10/13/18 16:54 Freq: NEEDED Status: Active Protocol: Document 10/16/18 11:30 GGD (Rec: 10/16/18 12:09 GGD [email or web address]) Physical Therapy Treatment Exercises Exercises Ankle Pumps Quad Sets Heel Slides Seated Knee Flexion/Extension M7 PT-IP Assessment and Plan Start: 10/13/18 16:54 Freq: NEEDED Status: Active Protocol: Document 10/16/18 11:30 GGD (Rec: 10/16/18 12:09 GGD [email or web address]) PT Summary Assessment and Plan Summary Assessment Summary Pt improving with gait posture and technique. He need less cueing with mobility. He is safe for home D/C when medically stable. Frequency of Treatment Frequency Of Treatment Twice a Day Treatment Plan Physical Therapy Treatment Plan Bed Mobility Training Transfer Training Gait Training Therapeutic Exercise Balance Retraining Post Op Education Discharge Planning Hot or Cold Pack Other Recommendations and Next Treatment ambulation, stair climbing Focus training Recommendations To Nursing Amount of Assist Needed 1 Person Assist Discharge Recommendations PT Discharge Recommendations Home Outpatient PT
[2018-10-16 12:28] VITALS: BP 125/61; PULSE 74; RESP 18; TEMP 36.7; O2SAT 93
[2018-10-16] MEDS: IBUPROFEN 600 MG TABLET PO (13:04)
--- NOTE | 2018-10-16 13:15 | PC.NURSE ---
Addendum entered by Johnna Marie R.N. 10/16/18 15:09: Reviewed discharge summary packet with pt. Pt stated he had no questions. Pt has all belongings.Had a shower just prior to leaving unit. pt's friend present to drive pt home. Pt left unit via wheelchair in no distress with this insurance underwriter at [id number]. Original Note: Day Shift- Pt A&OX4, appropriate, able to use call light. High fall risk precautions in place, bed alarm on. Rates 3-6/10 pain to left knee controlled with prn Oxycodone and Ibuprofen and scheduled Tyelnol. BP better today, pt does not report any light-headedness with ambulation. OOB with SBA, pt using FWW with cues. Food Technology Teacher in to see pt at 1310 per his request. Wanted information of foods for proper healing. Left abeba aquacel dressing intact with samll amount of drainage shadowing to mid distal end. Russell wrap in place, CMS+. Pt states is ready for discharge and his friend isaura Glass will be at hospital between [id number] to pick him up.
== END 2018-10-16 14:45 | disposition home or self-care (01) ==
LOC: AC 10-16 08:36 → OR 10-16 15:07 → AC 10-16 15:09 → OR 10-16 15:09
PROVIDERS: Admitting Provider Orthopaedic Surgery; Visit Provider Orthopaedic Surgery
PROC: 0SRD0JZ Replacement of Left Knee Joint with Synthetic Substitute, Open Approach (ICD-10-PCS; CPT 27447; principal; 2018-10-13 10:00)
DX: M17.12 Unilateral primary osteoarthritis, left knee (principal); I10 Essential (primary) hypertension; R25.1 Tremor, unspecified; I65.23 Occlusion and stenosis of bilateral carotid arteries; D62 Acute posthemorrhagic anemia
CPT/HCPCS: 27447; 36415; 73560; 85014; 85018; 94760; 94762; 97110; 97116; 97161; 97530; C1776; G0378; C9290; J0690; J1100; J1170; J2250; J2270; J2405; J2704; J3010

== ENCOUNTER → 2020-03-14 09:14 | Outpatient (CLI) | payer MEDICARE, SELFPAY ==
[2018-10-13 19:00] VITALS: BMI 24.3
[2020-03-15 09:43] LABS: COVID19 Sendout Not Detected (Not Detect)
== END ==
PROVIDERS: Visit Provider Student in an Organized Health Care Education/Training Program
DX: Z01.812 Encounter for preprocedural laboratory examination (principal)
CPT/HCPCS: 87635

== ENCOUNTER 2020-03-17 06:43 | Day surgery (SDC) | payer MEDICARE, OTHER, SELFPAY ==
[2018-10-13 19:00] VITALS: BMI 24.3
[2020-03-17] MEDS: CATARACT EYE COMPOUND (10 DROPS/SYRINGE) 3 DROPS EYE-OP (07:30)
[2020-03-17] MEDS: PROPARACAINE 0.5% OPHTH SOL 2 DROPS EYE-OP (07:30)
[2020-03-17 07:42] VITALS: BP 156/82; PULSE 65; RESP 16; TEMP 37; O2SAT 99; BMI 24.0
--- NOTE | 2020-03-17 08:08 | SUR.OPER ---
Supine on eye stretcher, head on extension cradle secured with tape. Arms tucked at sides with blanket. Pillow under knees.
--- NOTE | 2020-03-17 08:15 | PM.PREOP ---
Pre-operative Note COVID-19 COVID-19 status: Negative Result date/Date tested (Pos, Neg/Pending): 03/14/20 Interval Note History & Physical reviewed/Exam performed by Physician: Yes Changes to H&P: No
[2020-03-17] MEDS: TETRACAINE 0.5% OPHTH DROPS 4 ML 2 DROPS EYE-OP (08:39)
[2020-03-17] MEDS: MOXIFLOXACIN INJ 5 MG/ML VIAL EYE-OP (08:40)
[2020-03-17] MEDS: CHONDROIDTIN/SOD HYALURONATE 1.05 ML SYRINGE INTRAOCULA (08:40)
[2020-03-17] MEDS: BALANCED SALT IRRIG SOLN NO.2 500 ML, EPINEPHrine 1 MG IRR (08:41)
[2020-03-17] MEDS: PHENYLEPHRINE/LIDOCAINE VIAL (OR) 0.2 ML EYE-OP (08:42)
[2020-03-17] MEDS: LIDOCAINE 2% INJ SDV 2 ML INJ (08:42)
--- NOTE | 2020-03-17 09:00 | PM.OP.1 ---
Procedure & Clinicians Procedure: Cataract extraction with intraocular lens implant, right. Same procedure as scheduled: Yes Indications: Visually significant age related nuclear sclerosis Surgeon: Gold Greer Click Yes if Unassisted: Yes Anesthesia Type: MAC +/- Operative Notes Procedure in detail: The patient was brought to the operating suite. The correct patient, surgical site and lens were confirmed. 0.5 % tetracaine drops were placed in the right eye. The patient was prepped and draped in the typical sterile manner. A lid speculum was placed in the eye. 2% lidocaine was placed on the eye. A paracentesis port was created with a side-port blade. 0.1 mL of 1% preservative free lidocaine with phenylephrine was injected into the anterior chamber. Viscoelastic was injected into the anterior chamber. A 2.6mm keratome was used to create a clear corneal temporal incision. Cystotome and Utrata forceps were used to create a continuous curvilinear capsulorrhexis. Balanced salt solution was used to hydrodissect the nucleus. Phacoemulsification was used to remove the lens. The capsular bag was inflated with viscoelastic. A Corona ZCBOO +14.5D lens was inserted into the capsule. Viscoelastic was removed and the wound hydrated. The wound was found to be leak free and the eye was assessed to be at normal physiologic pressure. 0.1mL Moxifloxacin (5mg/mL) preservative free was injected into the anterior chamber. The lid speculum was removed and the patient left the operating room in excellent condition. Complications: none Post-operative Condition: stable Disposition: same day surgery
[2020-03-17 09:10] VITALS: BP 140/66; PULSE 61; TEMP 36.3; O2SAT 99
== END 2020-03-17 09:21 | disposition home or self-care (01) ==
PROVIDERS: Referring Provider Ophthalmology; Visit Provider Ophthalmology
PROC: (CPT 66984; principal; 2020-03-17 08:15)
DX: H25.11 Age-related nuclear cataract, right eye (principal); I10 Essential (primary) hypertension
CPT/HCPCS: 66984; J0171; J2250

== ENCOUNTER → 2020-03-28 09:45 | Outpatient (CLI) | payer MEDICARE, SELFPAY ==
[2018-10-13 19:00] VITALS: BMI 24.3
[2020-03-29 20:26] LABS: COVID19 Sendout Not Detected (Not Detect)
== END ==
PROVIDERS: Visit Provider Physician Assistant
DX: Z01.812 Encounter for preprocedural laboratory examination (principal)
CPT/HCPCS: 87635

== ENCOUNTER 2020-03-31 09:11 | Day surgery (SDC) | payer MEDICARE, OTHER, SELFPAY ==
[2018-10-13 19:00] VITALS: BMI 24.3
[2020-03-31 09:36] VITALS: BP 142/85; PULSE 67; RESP 14; TEMP 36.7
[2020-03-31 09:41] VITALS: BMI 22.1
[2020-03-31] MEDS: CATARACT EYE COMPOUND (10 DROPS/SYRINGE) 3 DROPS EYE-OP (09:48)
[2020-03-31] MEDS: PROPARACAINE 0.5% OPHTH SOL 2 DROPS EYE-OP (09:57)
--- NOTE | 2020-03-31 11:04 | PM.PREOP ---
Pre-operative Note COVID-19 COVID-19 status: Negative Result date/Date tested (Pos, Neg/Pending): 03/28/20 Interval Note History & Physical reviewed/Exam performed by Physician: Yes Changes to H&P: No
[2020-03-31] MEDS: PHENYLEPHRINE/LIDOCAINE VIAL (OR) 0.2 ML EYE-OP (11:23)
[2020-03-31] MEDS: BALANCED SALT IRRIG SOLN NO.2 500 ML, EPINEPHrine 1 MG IRR (11:23)
[2020-03-31] MEDS: CHONDROIDTIN/SOD HYALURONATE 1.05 ML SYRINGE INTRAOCULA (11:24)
[2020-03-31] MEDS: LIDOCAINE 2% INJ SDV 2 ML INJ (11:24)
[2020-03-31] MEDS: MOXIFLOXACIN INJ 5 MG/ML VIAL EYE-OP (11:24)
[2020-03-31] MEDS: TETRACAINE 0.5% OPHTH DROPS 4 ML 2 DROPS EYE-OP (11:25)
[2020-03-31] MEDS: BALANCED SALT IRRIG SOLN NO.2 15 ML 5 ML IRR (11:25)
--- NOTE | 2020-03-31 11:41 | PM.OP.1 ---
Procedure & Clinicians Procedure: Cataract extraction with intraocular lens implant, left. Same procedure as scheduled: Yes Indications: Visually significant age related nuclear sclerosis Surgeon: Gold Greer Click Yes if Unassisted: Yes Anesthesia Type: MAC +/- Operative Notes Procedure in detail: The patient was brought to the operating suite. The correct patient, surgical site and lens were confirmed. 0.5 % tetracaine drops were placed in the left eye. The patient was prepped and draped in the typical sterile manner. A lid speculum was placed in the eye. 2% lidocaine was placed on the eye. A paracentesis port was created with a side-port blade. 0.1 mL of 1% preservative free lidocaine with phenylephrine was injected into the anterior chamber. Viscoelastic was injected into the anterior chamber. A 2.6mm keratome was used to create a clear corneal temporal incision. Cystotome and Utrata forceps were used to create a continuous curvilinear capsulorrhexis. Balanced salt solution was used to hydrodissect the nucleus. Phacoemulsification was used to remove the lens. The capsular bag was inflated with viscoelastic. A Corona ZCBOO +16.0D lens was inserted into the capsule. Viscoelastic was removed and the wound hydrated. The wound was found to be leak free and the eye was assessed to be at normal physiologic pressure. 0.1mL Moxifloxacin (5mg/mL) preservative free was injected into the anterior chamber. The lid speculum was removed and the patient left the operating room in excellent condition. Complications: none Post-operative Condition: stable Disposition: same day surgery
[2020-03-31 11:48] VITALS: BP 117/70; PULSE 14; RESP 59; TEMP 36.1; O2SAT 95
== END 2020-03-31 12:00 | disposition home or self-care (01) ==
LOC: OR 09:15
PROVIDERS: Referring Provider Ophthalmology; Visit Provider Ophthalmology
PROC: (CPT 66984; principal; 2020-03-31 10:30)
DX: H25.12 Age-related nuclear cataract, left eye (principal)
CPT/HCPCS: 66984; J0171; J2250; J2704